=== PATIENT | female | born 1955 | race Caucasian/White ===

== ENCOUNTER 2020-04-08 13:46 | Observation (INO) | payer MEDICARE, BC ==
[2020-04-08] MEDS ORDERED: Insulin Regular, Human 100 Units/ML 3 ML Vial SUBCUT ONE (15:23)
--- NOTE | 2020-04-08 15:32 | EDM.PDOC ---
ED HPI GENERAL MEDICAL PROBLEM - General Chief Complaint: General Stated Complaint: BLOOD SUGARS ARE HIGH Time Seen by Provider: 04/08/20 15:15 Source of Information: Reports: Patient, Family, Old Records, RN History Limitations: Reports: No Limitations - History of Present Illness INITIAL COMMENTS - FREE TEXT/NARRATIVE: 64 yo female presents with a chief complaint of "high" blood sugars. Says her blood sugars normally run about 150. Is only on Lantus at bedtime. Was recently prescribed dexamethasone and sugars have since gone up. No fever or chills. Also had paracentesis recently. Onset: Today, Gradual Onset Date: 04/08/20 Duration: Hour(s):, Getting Worse Location: Reports: Generalized Quality: Reports: Other (no new pain) Severity: Severe Improves with: Reports: None Worsens with: Reports: Other (? time/ dexamethasone) Context: Reports: Other (See HPI) Associated Symptoms: Reports: No Other Symptoms Treatments RECOVERER: Reports: Other (see below) (none) - Related Data Allergies Allergy/AdvReac Type Severity Reaction Status Date / Time No Known Allergies Allergy Verified 01/29/20 09:53 Home Meds: Home Meds Amylase/Lipase/Protease [Marjan GILL 24,000 Unit] 24,000 units PO ASDIRECTED 04/08/20 [History] Insulin Glargine,Hum.Rec.Anlog [Basaglar Kwikpen U-100] 13 units SUBCNJ BEDTIME 04/08/20 [History] OLANZapine [Olanzapine] 10 mg PO DAILY 04/08/20 [History] Prochlorperazine [Compazine] 10 mg PO TID PRN 04/08/20 [History] dexAMETHasone [Dexamethasone] 4 mg PO ASDIRECTED 04/08/20 [History] metFORMIN [Glucophage] 1,000 mg PO BID 04/08/20 [History] ondansetron HCL [Ondansetron HCl] 8 mg PO ASDIRECTED PRN 04/08/20 [History] oxyCODONE 5 mg PO ASDIRECTED PRN 04/08/20 [History] 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: Endocrine/Metabolic History: Reports: Diabetes, Type II Oncologic (Cancer) History: Reports: Ovarian - Past Surgical History Female Surgical History: Reports: Hysterectomy Social & Family History - Tobacco Use Smoking Status *Q: Never Smoker - Caffeine Use Caffeine Use: Reports: Soda - Recreational Drug Use Recreational Drug Use: No ED ROS GENERAL - Review of Systems Review Of Systems: See Below Constitutional: Reports: No Symptoms HEENT: Reports: No Symptoms Respiratory: Reports: No Symptoms Cardiovascular: Reports: No Symptoms Endocrine: Reports: High Glucose GI/Abdominal: Reports: Other (chronic ascites) : Reports: No Symptoms Musculoskeletal: Reports: No Symptoms Skin: Reports: No Symptoms ED EXAM, GENERAL - Physical Exam Exam: See Below Exam Limited By: No Limitations General Appearance: Alert, WD/WN, No Apparent Distress Eye Exam: Bilateral Eye: Normal Inspection Ears: Normal External Exam, Normal Canal, Hearing Grossly Normal Ear Exam: Bilateral Ear: Auricle Normal, Canal Normal Nose: Normal Inspection, No Blood Throat/Mouth: Normal Inspection, Normal Lips, Normal Oropharynx, Normal Voice, No Airway Compromise Head: Atraumatic, Normocephalic Neck: Normal Inspection Respiratory/Chest: No Respiratory Distress, Lungs Clear, Normal Breath Sounds Cardiovascular: Regular Rate, Rhythm, No Edema GI/Abdominal: Normal Bowel Sounds, Soft, Non-Tender, No Distention, Other (ascites present) Back Exam: Normal Inspection. No: CVA Tenderness (R), CVA Tenderness (L) Extremities: Normal Inspection, Normal Range of Motion, Non-Tender, No Pedal Edema Neurological: Alert, Oriented, CN II-XII Intact, Normal Cognition, No Motor/Sensory Deficits Psychiatric: Normal Affect, Normal Mood Skin Exam: Warm, Dry, Intact, Normal Color, No Rash Course - Vital Signs Text/Narrative:: Dr. Valencia called @ 1620h Last Recorded V/S: Last Vital Signs Temp 36.2 C 04/08/20 15:19 Pulse 64 04/08/20 15:19 Resp 16 04/08/20 15:19 BP 104/67 04/08/20 15:19 Pulse Ox 96 04/08/20 15:19 - Orders/Labs/Meds Orders: Active Orders 24 hr Category Date Time Status CULTURE URINE [RM] Stat Lab 04/08/20 16:18 Ordered GLUCOSE POC LAB TO COLLECT JPM [POC] Stat Lab 04/08/20 17:05 Ordered Labs: Laboratory Tests 04/08/20 04/08/20 04/08/20 Range/Units 15:32 15:32 15:54 WBC 13.9 H (4.5-11.0) K/uL RBC 4.35 (3.30-5.50) M/uL Hgb 11.4 L (12.0-15.0) g/dL Hct 34.0 L (36.0-48.0) % MCV 78 L (80-98) fL MCH 26 L (27-31) pg MCHC 34 (32-36) % Plt Count 230 (150-400) K/uL Sodium 120 L (140-148) mmol/L Potassium 4.9 (3.6-5.2) mmol/L Chloride 88 L (100-108) mmol/L Carbon Dioxide 22 (21-32) mmol/L Anion Gap 14.9 H (5.0-14.0) mmol/L BUN 43 H (7-18) mg/dL Creatinine 1.4 H (0.6-1.0) mg/dL Est Cr Clr Drug Dosing 31.27 mL/min Estimated GFR (MDRD) 38 L (>60) Glucose 696 H* (74-106) mg/dL Calcium 9.1 (8.5-10.1) mg/dL Urine Color Yellow (YELLOW) Urine Appearance Slightly cloudy A (CLEAR) Urine pH 5.5 (5.0-8.0) Ur Specific [place] 1.020 (1.008-1.030) Urine Protein Negative (NEGATIVE) mg/dL Urine Glucose (UA) 500 H (NEGATIVE) mg/dL Urine Ketones Negative (NEGATIVE) mg/dL Urine Occult Blood Trace-intact H (NEGATIVE) Urine Nitrite Negative (NEGATIVE) Urine Bilirubin Negative (NEGATIVE) Urine Urobilinogen 0.2 (0.2-1.0) EU/dL Ur Leukocyte Esterase Negative (NEGATIVE) Urine RBC 0-5 (0-5) Urine WBC 10-20 H (0-5) Ur Epithelial Cells Few Amorphous Sediment Few Urine Bacteria Few Urine Mucus Not seen Urine Other See note Meds: Medications Discontinued Medications Generic Name Dose Route Start Last Admin Trade Name Freq PRN Reason Stop Dose Admin Insulin Human Regular 15 unit 04/08/20 15:23 04/08/20 16:07 Humulin R SUBCUT 04/08/20 15:24 15 unit ONETIME ONE Administration Potassium Chloride 30 meq 04/08/20 16:19 Potassium Chloride PO 04/08/20 16:20 ONETIME ONE Departure - Departure Time of Disposition: 16:35 Disposition: Admitted As Inpatient 65 Condition: Fair Clinical Impression: Hyperglycemia - Discharge Information *PRESCRIPTION DRUG MONITORING PROGRAM REVIEWED*: No *COPY OF PRESCRIPTION DRUG MONITORING REPORT IN PATIENT KEE: No Referrals: Ishmael Carrasco MD [Primary Care Provider] - Forms: ED Department Discharge Sepsis Event Note (ED) - Evaluation Sepsis Screening Result: No Definite Risk - Focused Exam Vital Signs: Vital Signs Temp Pulse Resp BP Pulse Ox 04/08/20 15:19 36.2 C 64 16 104/67 96 04/08/20 15:18 36.2 C 64 16 104/67 96 - My Orders Last 24 Hours: My Active Orders 04/08/20 16:18 CULTURE URINE [RM] Stat 04/08/20 17:05 GLUCOSE POC LAB TO COLLECT JPM [POC] Stat - Assessment/Plan Last 24 Hours: My Active Orders 04/08/20 16:18 CULTURE URINE [RM] Stat 04/08/20 17:05 GLUCOSE POC LAB TO COLLECT JPM [POC] Stat
[2020-04-08] MEDS ORDERED: Potassium Chloride 10 MEQ Cap.ER PO ONE (16:19)
--- NOTE | 2020-04-08 16:54 | PCM.HP.2 ---
H&P History of Present Illness - General Date of Service: 04/08/20 Admit Problem/Dx: Admission Diagnosis/Problem Admission Diagnosis/Problem Hyperglycemia Source of Information: Patient, Family, Provider, RN Notes Reviewed History Limitations: Reports: No Limitations - History of Present Illness Initial Comments - Free Text/Narative: Ms. Curtis is a 64-year-old woman who was admitted to observation status through the emergency department with hyperglycemia, secondary to underlying type 2 diabetes mellitus and use of dexamethasone. 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 She received her first dose of chemotherapy on April 06. As part of her chemotherapeutic regimen she was started on dexamethasone 4 mg daily for 3 days on April 07. Her blood sugar yesterday morning was 160 and she did not check her glucose last night. Her blood sugar at home this morning was very elevated and she presented to the emergency department for further evaluation. Here her blood sugar is 696. She denies any recent fevers chills or sweats and also denies any localized symptoms of infection. White blood cell count is elevated but this is likely secondary to the dexamethasone. She currently has no urinary symptoms, white cells were elevated in the urine but there is no other obvious evidence of infection. - Related Data Allergies/Adverse Reactions: Allergies Allergy/AdvReac Type Severity Reaction Status Date / Time No Known Allergies Allergy Verified 01/29/20 09:53 Home Medications: Home Meds Amylase/Lipase/Protease [Marjan GILL 24,000 Unit] 24,000 units PO ASDIRECTED 04/08/20 [History] Insulin Glargine,Hum.Rec.Anlog [Sebastienaglemma [place] U-100] 13 units SUBCNJ BEDTIME 04/08/20 [History] OLANZapine [Olanzapine] 10 mg PO DAILY 04/08/20 [History] Prochlorperazine [Compazine] 10 mg PO TID PRN 04/08/20 [History] dexAMETHasone [Dexamethasone] 4 mg PO ASDIRECTED 04/08/20 [History] metFORMIN [Glucophage] 1,000 mg PO BID 04/08/20 [History] ondansetron HCL [Ondansetron HCl] 8 mg PO ASDIRECTED PRN 04/08/20 [History] oxyCODONE 5 mg PO ASDIRECTED PRN 04/08/20 [History] 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 Denies: Fever, Chills HEENT: Reports: No Symptoms Pulmonary: Reports: No Symptoms Cardiovascular: Reports: No Symptoms Gastrointestinal: Reports: No Symptoms Genitourinary: Reports: No Symptoms Musculoskeletal: Reports: No Symptoms Skin: Reports: No Symptoms Psychiatric: Reports: No Symptoms Neurological: Reports: No Symptoms Hematologic/Lymphatic: Reports: No Symptoms Immunologic: Reports: No Symptoms Exam - Exam Exam: See Below - Vital Signs Vital Signs: Last Vital Signs Temp 97.2 F 04/08/20 15:19 Pulse 64 04/08/20 15:19 Resp 16 04/08/20 15:19 BP 104/67 04/08/20 15:19 Pulse Ox 96 04/08/20 15:19 Weight: 109 lb - Exam Quality Assessment: DVT Prophylaxis General: Alert, Oriented, Cooperative, Mild Distress HEENT: Conjunctiva Clear, Hearing Intact, Mucosa Moist & [place], Normal Nasal Septum, Posterior Pharynx Clear, Pupils Equal Neck: Supple, Trachea Midline, +2 Carotid Pulse wo Bruit Lungs: Clear to Auscultation, Normal Respiratory Effort Cardiovascular: Regular Rate, Regular Rhythm, Normal S1, Normal S2 GI/Abdominal Exam: Soft, Non-Tender, No Organomegaly, No Distention Back Exam: Normal Inspection, Full Range of Motion Extremities: Non-Tender, No Pedal Edema Skin: Warm, Dry, Intact Neurological: Cranial Nerves Intact, Strength Equal Bilateral, Normal Speech, Normal Tone, Sensation Intact. No: Focal Deficit Neuro Extensive - Mental Status: Alert, Oriented x3, Normal Mood/Affect, Normal Cognition, Memory Intact - Patient Data Lab Results Last 24 hrs: Laboratory Results - last 24 hr 04/08/20 04/08/20 04/08/20 Range/Units 15:32 15:32 15:54 WBC 13.9 H (4.5-11.0) K/uL RBC 4.35 (3.30-5.50) M/uL Hgb 11.4 L (12.0-15.0) g/dL Hct 34.0 L (36.0-48.0) % MCV 78 L (80-98) fL MCH 26 L (27-31) pg MCHC 34 (32-36) % Plt Count 230 (150-400) K/uL Sodium 120 L (140-148) mmol/L Potassium 4.9 (3.6-5.2) mmol/L Chloride 88 L (100-108) mmol/L Carbon Dioxide 22 (21-32) mmol/L Anion Gap 14.9 H (5.0-14.0) mmol/L BUN 43 H (7-18) mg/dL Creatinine 1.4 H (0.6-1.0) mg/dL Est Cr Clr Drug Dosing 31.27 mL/min Estimated GFR (MDRD) 38 L (>60) Glucose 696 H* (74-106) mg/dL Calcium 9.1 (8.5-10.1) mg/dL Urine Color Yellow (YELLOW) Urine Appearance Slightly cloudy A (CLEAR) Urine pH 5.5 (5.0-8.0) Ur Specific [place] 1.020 (1.008-1.030) Urine Protein Negative (NEGATIVE) mg/dL Urine Glucose (UA) 500 H (NEGATIVE) mg/dL Urine Ketones Negative (NEGATIVE) mg/dL Urine Occult Blood Trace-intact H (NEGATIVE) Urine Nitrite Negative (NEGATIVE) Urine Bilirubin Negative (NEGATIVE) Urine Urobilinogen 0.2 (0.2-1.0) EU/dL Ur Leukocyte Esterase Negative (NEGATIVE) Urine RBC 0-5 (0-5) Urine WBC 10-20 H (0-5) Ur Epithelial Cells Few Amorphous Sediment Few Urine Bacteria Few Urine Mucus Not seen Urine Other See note Result Diagrams: 04/08/20 15:32 04/08/20 15:32 Sepsis Event Note - Evaluation Sepsis Screening Result: No Definite Risk - Focused Exam Vital Signs: Vital Signs Temp Pulse Resp BP Pulse Ox 04/08/20 15:19 97.2 F 64 16 104/67 96 04/08/20 15:18 97.2 F 64 16 104/67 96 Date Exam was Performed: 04/08/20 Time Exam was Performed: 16:48 *Q Meaningful Use (ADM) - VTE Risk Assess *Q Each Risk Factor Represents 1 Point: None Total Score 1 Point Risk Factors: 0 Each Risk Factor Represents 2 Points: Age 60 - 74 Years, Malignancy (present or previous) Total Score 2 Point Risk Factors: 4 Each Risk Factor Represents 3 Points: None Total Score 3 Point Risk Factors: 0 Each Risk Factor Represents 5 Points: None Total Score 5 Point Risk Factors: 0 Venous Thromboembolism Risk Factor Score *Q: 4 Problem List Initiated/Reviewed/Updated: Yes Orders Last 24hrs: Active Orders 24 hr Category Date Time Status Patient Status Manage Transfer [TRANSFER] Routine ADT 04/08/20 16:42 Ordered CULTURE URINE [RM] Stat Lab 04/08/20 16:21 Received GLUCOSE POC LAB TO COLLECT JPM [POC] Stat Lab 04/08/20 17:05 Stop Req Resuscitation Status Routine Resus Stat 04/08/20 16:45 Ordered Assessment/Plan Comment:: ASSESSMENT AND PLAN HYPERGLYCEMIA-likely secondary to current therapy with dexamethasone as well as her underlying type 2 diabetes mellitus. No evidence of underlying infection identified at the present time. -Lantus 20 units subcu nightly -Moderate dose sliding scale Humalog -4 times daily glucometers -Hold dexamethasone METASTATIC OVARIAN CARCINOMA-status post first course of chemotherapy including dexamethasone -Hold dexamethasone MAINTENANCE ISSUES -DVT prophylaxis; Lovenox 40 mg subcu daily -GI prophylaxis; not indicated -Suarez catheter; not indicated -Nutrition; consistent carbohydrate diet -Nicotine dependence; not required CODE STATUS-FULL CODE ADMISSION STATUS-this patient will be admitted to observation status, expect no more than a one night hospital stay for evaluation and management of problems as outlined above. DISPOSITION-anticipate discharge to home after the hospital stay. PRIMARY CARE PROVIDER-Dr. Carrasco - Mortality Measure Prognosis:: Good
[2020-04-08] MEDS ORDERED: 50% Dextrose in Water 50 ML Syringe IV PRN (18:36)
[2020-04-08] MEDS ORDERED: Sodium Chloride 0.9% 10 ML Syringe FLUSH PRN (18:36)
[2020-04-08] MEDS ORDERED: Enoxaparin 40 MG/0.4 ML Syringe SUBCUT SCH (18:36)
[2020-04-08] MEDS ORDERED: Polyethylene Glycol 3350 Powder 17 GM Packet PO PRN (18:36)
[2020-04-08] MEDS ORDERED: Acetaminophen 325 MG Tab PO PRN (18:36)
[2020-04-08] MEDS ORDERED: Ondansetron 4 MG/2 ML SDV IV PRN (18:36)
[2020-04-08] MEDS ORDERED: Glucose Gel 15 GM in 37.5 GM Tube PO PRN (18:36)
[2020-04-08] MEDS ORDERED: metFORMIN 500 MG Tab PO SCH (19:15)
[2020-04-08] MEDS ORDERED: Insulin Lispro 100 Units/ML 3 ML Vial SUBCUT ONE (19:49)
[2020-04-08] MEDS: Sodium Chloride 0.9% 1,000 ML IV SCH (20:13)
[2020-04-08] MEDS: Insulin Lispro 100 Unit/ML 3 ML KwikPen SUBCUT SCH ×2 (20:14→23:13)
[2020-04-08] MEDS: oxyCODONE 5 MG Tab PO PRN (20:47)
[2020-04-08] MEDS: Insulin Glargine,Human Rec. Analog 100 Units/ML 3 ML Pen SUBCUT SCH (21:30)
[2020-04-09] MEDS: oxyCODONE 5 MG Tab PO PRN ×2 (02:10→14:24)
[2020-04-09] MEDS: Sodium Chloride 0.9% 1,000 ML IV SCH ×2 (04:03→11:58)
[2020-04-09] MEDS: Insulin Lispro 100 Unit/ML 3 ML KwikPen SUBCUT SCH ×4 (07:51→21:28)
[2020-04-09] MEDS ORDERED: Amylase/Lipase/Protease 12,000 Unit Cap.CR PO SCH (08:00)
[2020-04-09] MEDS ORDERED: Dexamethasone 4 MG Tab PO SCH (09:00)
[2020-04-09] MEDS: [UNRECOGNIZED DRUG - OTHER] PO SCH ×3 (10:42→17:38)
[2020-04-09] MEDS: METFORMIN 1000MG **PTOM PO SCH ×2 (10:42→17:38)
--- NOTE | 2020-04-09 12:07 | PCM.PN ---
- General Info Date of Service: 04/09/20 Subjective Update: Ms. Curtis is felt improved since admission with better strength and appetite. Blood glucose levels have come within desired range. Urine culture is growing gram-negative milan, final ID and sensitivities are pending. Functional Status: Reports: Tolerating Diet, Ambulating, Urinating - Review of Systems General: Reports: Weakness. Denies: Fever, Chills Pulmonary: Reports: No Symptoms Cardiovascular: Reports: No Symptoms Gastrointestinal: Reports: No Symptoms Genitourinary: Reports: No Symptoms - Patient Data Vitals - Most Recent: Last Vital Signs Temp 95 F L 04/09/20 08:45 Pulse 67 04/09/20 08:45 Resp 16 04/09/20 08:45 BP 103/65 04/09/20 08:45 Pulse Ox 95 04/09/20 08:45 Weight - Most Recent: 113 lb 0.002 oz I&O - Last 24 Hours: Intake & Output 04/08/20 04/09/20 04/09/20 22:59 06:59 14:59 Intake Total 1797 236 Balance 1797 236 Lab Results Last 24 Hours: Laboratory Results - last 24 hr 04/08/20 04/08/20 04/08/20 Range/Units 15:32 15:32 15:54 WBC 13.9 H (4.5-11.0) K/uL RBC 4.35 (3.30-5.50) M/uL Hgb 11.4 L (12.0-15.0) g/dL Hct 34.0 L (36.0-48.0) % MCV 78 L (80-98) fL MCH 26 L (27-31) pg MCHC 34 (32-36) % Plt Count 230 (150-400) K/uL Neut % (Auto) (36-66) % Lymph % (Auto) (24-44) % [place] % (Auto) (2-6) % Eos % (Auto) (2-4) % Baso % (Auto) (0-1) % Sodium 120 L (140-148) mmol/L Potassium 4.9 (3.6-5.2) mmol/L Chloride 88 L (100-108) mmol/L Carbon Dioxide 22 (21-32) mmol/L Anion Gap 14.9 H (5.0-14.0) mmol/L BUN 43 H (7-18) mg/dL Creatinine 1.4 H (0.6-1.0) mg/dL Est Cr Clr Drug Dosing 31.27 mL/min Estimated GFR (MDRD) 38 L (>60) Glucose 696 H* (74-106) mg/dL POC Glucose (74-106) MG/DL Calcium 9.1 (8.5-10.1) mg/dL Urine Color Yellow (YELLOW) Urine Appearance Slightly cloudy A (CLEAR) Urine pH 5.5 (5.0-8.0) Ur Specific [place] 1.020 (1.008-1.030) Urine Protein Negative (NEGATIVE) mg/dL Urine Glucose (UA) 500 H (NEGATIVE) mg/dL Urine Ketones Negative (NEGATIVE) mg/dL Urine Occult Blood Trace-intact H (NEGATIVE) Urine Nitrite Negative (NEGATIVE) Urine Bilirubin Negative (NEGATIVE) Urine Urobilinogen 0.2 (0.2-1.0) EU/dL Ur Leukocyte Esterase Negative (NEGATIVE) Urine RBC 0-5 (0-5) Urine WBC 10-20 H (0-5) Ur Epithelial Cells Few Amorphous Sediment Few Urine Bacteria Few Urine Mucus Not seen Urine Other See note 04/08/20 04/08/20 04/08/20 Range/Units 19:40 21:00 23:00 WBC (4.5-11.0) K/uL RBC (3.30-5.50) M/uL Hgb (12.0-15.0) g/dL Hct (36.0-48.0) % MCV (80-98) fL MCH (27-31) pg MCHC (32-36) % Plt Count (150-400) K/uL Neut % (Auto) (36-66) % Lymph % (Auto) (24-44) % [place] % (Auto) (2-6) % Eos % (Auto) (2-4) % Baso % (Auto) (0-1) % Sodium (140-148) mmol/L Potassium (3.6-5.2) mmol/L Chloride (100-108) mmol/L Carbon Dioxide (21-32) mmol/L Anion Gap (5.0-14.0) mmol/L BUN (7-18) mg/dL Creatinine (0.6-1.0) mg/dL Est Cr Clr Drug Dosing mL/min Estimated GFR (MDRD) (>60) Glucose (74-106) mg/dL POC Glucose > 500 H* 459 H 284 H (74-106) MG/DL Calcium (8.5-10.1) mg/dL Urine Color (YELLOW) Urine Appearance (CLEAR) Urine pH (5.0-8.0) Ur Specific [place] (1.008-1.030) Urine Protein (NEGATIVE) mg/dL Urine Glucose (UA) (NEGATIVE) mg/dL Urine Ketones (NEGATIVE) mg/dL Urine Occult Blood (NEGATIVE) Urine Nitrite (NEGATIVE) Urine Bilirubin (NEGATIVE) Urine Urobilinogen (0.2-1.0) EU/dL Ur Leukocyte Esterase (NEGATIVE) Urine RBC (0-5) Urine WBC (0-5) Ur Epithelial Cells Amorphous Sediment Urine Bacteria Urine Mucus Urine Other 04/09/20 04/09/20 04/09/20 Range/Units 04:40 04:40 07:30 WBC 12.7 H (4.5-11.0) K/uL RBC 4.41 (3.30-5.50) M/uL Hgb 11.3 L (12.0-15.0) g/dL Hct 34.0 L (36.0-48.0) % MCV 77 L (80-98) fL MCH 26 L (27-31) pg MCHC 33 (32-36) % Plt Count 271 (150-400) K/uL Neut % (Auto) 98 H (36-66) % Lymph % (Auto) 2 L (24-44) % [place] % (Auto) 1 L (2-6) % Eos % (Auto) 0 L (2-4) % Baso % (Auto) 0 (0-1) % Sodium 131 L (140-148) mmol/L Potassium 4.6 (3.6-5.2) mmol/L Chloride 96 L (100-108) mmol/L Carbon Dioxide 24 (21-32) mmol/L Anion Gap 15.6 H (5.0-14.0) mmol/L BUN 44 H (7-18) mg/dL Creatinine 1.0 (0.6-1.0) mg/dL Est Cr Clr Drug Dosing 45.38 mL/min Estimated GFR (MDRD) 56 L (>60) Glucose 96 (74-106) mg/dL POC Glucose 111 H (74-106) MG/DL Calcium 9.0 (8.5-10.1) mg/dL Urine Color (YELLOW) Urine Appearance (CLEAR) Urine pH (5.0-8.0) Ur Specific [place] (1.008-1.030) Urine Protein (NEGATIVE) mg/dL Urine Glucose (UA) (NEGATIVE) mg/dL Urine Ketones (NEGATIVE) mg/dL Urine Occult Blood (NEGATIVE) Urine Nitrite (NEGATIVE) Urine Bilirubin (NEGATIVE) Urine Urobilinogen (0.2-1.0) EU/dL Ur Leukocyte Esterase (NEGATIVE) Urine RBC (0-5) Urine WBC (0-5) Ur Epithelial Cells Amorphous Sediment Urine Bacteria Urine Mucus Urine Other 04/09/20 Range/Units 11:30 WBC (4.5-11.0) K/uL RBC (3.30-5.50) M/uL Hgb (12.0-15.0) g/dL Hct (36.0-48.0) % MCV (80-98) fL MCH (27-31) pg MCHC (32-36) % Plt Count (150-400) K/uL Neut % (Auto) (36-66) % Lymph % (Auto) (24-44) % [place] % (Auto) (2-6) % Eos % (Auto) (2-4) % Baso % (Auto) (0-1) % Sodium (140-148) mmol/L Potassium (3.6-5.2) mmol/L Chloride (100-108) mmol/L Carbon Dioxide (21-32) mmol/L Anion Gap (5.0-14.0) mmol/L BUN (7-18) mg/dL Creatinine (0.6-1.0) mg/dL Est Cr Clr Drug Dosing mL/min Estimated GFR (MDRD) (>60) Glucose (74-106) mg/dL POC Glucose 188 H (74-106) MG/DL Calcium (8.5-10.1) mg/dL Urine Color (YELLOW) Urine Appearance (CLEAR) Urine pH (5.0-8.0) Ur Specific [place] (1.008-1.030) Urine Protein (NEGATIVE) mg/dL Urine Glucose (UA) (NEGATIVE) mg/dL Urine Ketones (NEGATIVE) mg/dL Urine Occult Blood (NEGATIVE) Urine Nitrite (NEGATIVE) Urine Bilirubin (NEGATIVE) Urine Urobilinogen (0.2-1.0) EU/dL Ur Leukocyte Esterase (NEGATIVE) Urine RBC (0-5) Urine WBC (0-5) Ur Epithelial Cells Amorphous Sediment Urine Bacteria Urine Mucus Urine Other Fidel Results Last 24 Hours: Microbiology 04/08/20 16:21 Urine Culture - Preliminary Urine, Clean Catch Med Orders - Current: Current Medications Acetaminophen (Tylenol) 650 mg PO Q4H PRN PRN Reason: Pain (Mild 1-3)/fever Dextrose (Glutose 15) 15 gm PO ONETIME PRN PRN Reason: Hypoglycemia Dextrose/Water (Dextrose 50% In Water) 50 ml IV ONETIME PRN PRN Reason: Hypoglycemia Enoxaparin Sodium (Lovenox) 40 mg SUBCUT BEDTIME [facility] Sodium Chloride (Normal Saline) 1,000 mls @ 125 mls/hr IV ASDIRECTED [facility] Last Admin: 04/09/20 11:58 Dose: 125 mls/hr Documented by: Ceftriaxone Sodium 1 gm/ (Sodium Chloride) 50 mls @ 100 mls/hr IV Q24H [facility] Insulin Glargine (Lantus Solostar) 20 units SUBCUT BEDTIME [facility] Last Admin: 04/08/20 21:30 Dose: 20 unit Documented by: Insulin Human Lispro (Humalog) 0 unit SUBCUT QIDACANDBED [facility]; Protocol Last Admin: 04/09/20 11:47 Dose: 2 unit Documented by: Lactobacillus Rhamnosus (Culturelle) 1 cap PO BID IFTIKHAR Ondansetron HCl (Zofran) 4 mg IV Q4H PRN PRN Reason: Nausea/Vomiting Oxycodone HCl (Oxycodone) 5 mg PO Q4H PRN PRN Reason: Pain Last Admin: 04/09/20 02:10 Dose: 5 mg Documented by: Creon [id number] Ptom 0 each PO TIDMEALS [facility] Last Admin: 04/09/20 10:42 Dose: 1 each Documented by: Metformin 1000mg (Ptom) 0 each PO BIDMEALS [facility] Last Admin: 04/09/20 10:42 Dose: 1 each Documented by: Polyethylene Glycol (Miralax) 17 gm PO DAILY PRN PRN Reason: Constipation Sodium Chloride (Saline Flush) 10 ml FLUSH ASDIRECTED PRN PRN Reason: Keep Vein Open Discontinued Medications Dexamethasone (Dexamethasone) 4 mg PO DAILY [facility] Enoxaparin Sodium (Lovenox) 40 mg SUBCUT DAILY [facility] Last Admin: 04/08/20 20:47 Dose: 40 mg Documented by: Insulin Human Lispro (Humalog) 14 unit SUBCUT ONETIME ONE Stop: 04/08/20 19:50 Last Admin: 04/08/20 20:04 Dose: 14 units Documented by: Insulin Human Regular (Humulin R) 15 unit SUBCUT ONETIME ONE Stop: 04/08/20 15:24 Last Admin: 04/08/20 16:07 Dose: 15 unit Documented by: Metformin HCl (Glucophage) 1,000 mg PO BIDMEALS [facility] Last Admin: 04/08/20 19:56 Dose: Not Given Documented by: Potassium Chloride (Potassium Chloride) 30 meq PO ONETIME ONE Stop: 04/08/20 16:20 Last Admin: 04/08/20 17:36 Dose: 30 meq Documented by: - Exam Quality Assessment: DVT Prophylaxis General: Alert, Oriented, Cooperative, Mild Distress Lungs: Clear to Auscultation, Normal Respiratory Effort Cardiovascular: Regular Rate, Regular Rhythm, No Murmurs GI/Abdominal Exam: Soft, Non-Tender, No Organomegaly, No Distention Sepsis Event Note - Evaluation Sepsis Screening Result: No Definite Risk - Focused Exam Vital Signs: Vital Signs Temp Pulse Resp BP Pulse Ox 04/09/20 08:45 95 F L 67 16 103/65 95 04/09/20 06:00 94.6 F L 63 16 109/68 95 04/09/20 02:04 94 F L 60 16 115/65 97 Date Exam was Performed: 04/09/20 Time Exam was Performed: 12:04 - Problem List Review Problem List Initiated/Reviewed/Updated: Yes - My Orders Last 24 Hours: My Active Orders 04/08/20 Lunch Consistent Carbohydrate Diet [DIET] 04/08/20 16:45 Resuscitation Status Routine 04/08/20 18:36 Acetaminophen [Tylenol] 650 mg PO Q4H PRN Dextrose 50% in Water 50 ml IV ONETIME PRN Dextrose [Glutose 15] 15 gm PO ONETIME PRN Insulin Lispro [HumaLOG] See Protocol SUBCUT QIDACANDBED Ondansetron [Zofran] 4 mg IV Q4H PRN Sodium Chloride 0.9% [Normal Saline] 1,000 ml IV ASDIRECTED Sodium Chloride 0.9% [Saline Flush] 10 ml FLUSH ASDIRECTED PRN oxyCODONE 5 mg PO Q4H PRN polyethylene glycoL 3350 [MiraLAX] 17 gm PO DAILY PRN 04/08/20 18:36 Patient Status [ADT] Routine Ambulate [RC] QID Communication Order [RC] STAT Diabetes Education [RC] Click to Edit Height and Weight [RC] DAILY Intake and Output [RC] QSHIFT Notify Provider Vital Signs [RC] ASDIRECTED Notify Provider [RC] PRN Oxygen Therapy [RC] PRN Peripheral IV Care [RC] BID Up With Assistance [RC] ASDIRECTED Up to Chair [RC] QID Vital Signs [RC] Q4H Peripheral IV Insertion Adult [OM.PC] Routine 04/08/20 21:00 Insulin Glarg,Human.Rec.Analog [LantUS Solostar] 20 units SUBCUT BEDTIME 04/09/20 09:00 Patient's Own Medication [Ptom] 0 each PO BIDMEALS Patient's Own Medication [Ptom] 0 each PO TIDMEALS 04/09/20 10:25 Consult to Physical Therapy [PT Evaluation and Treatment] [CONS] Routine 04/09/20 12:04 Convert IV to Saline Lock [OM.PC] Routine 04/09/20 12:15 Lactobacillus Rhamnosus GG [Culturelle] 1 cap PO BID cefTRIAXone [Rocephin] 1 gm Sodium Chloride 0.9% [Normal Saline] 50 ml IV Q24H 04/09/20 16:30 GLUCOSE POC LAB TO COLLECT JPM [POC] QIDACANDBED 04/09/20 21:00 GLUCOSE POC LAB TO COLLECT JPM [POC] QIDACANDBED Enoxaparin [Lovenox] 40 mg SUBCUT BEDTIME 04/10/20 07:30 GLUCOSE POC LAB TO COLLECT JPM [POC] QIDACANDBED 04/10/20 11:30 GLUCOSE POC LAB TO COLLECT JPM [POC] QIDACANDBED 04/10/20 16:30 GLUCOSE POC LAB TO COLLECT JPM [POC] QIDACANDBED 04/10/20 21:00 GLUCOSE POC LAB TO COLLECT JPM [POC] QIDACANDBED 04/11/20 07:30 GLUCOSE POC LAB TO COLLECT JPM [POC] QIDACANDBED 04/11/20 11:30 GLUCOSE POC LAB TO COLLECT JPM [POC] QIDACANDBED 04/11/20 16:30 GLUCOSE POC LAB TO COLLECT JPM [POC] QIDACANDBED 04/11/20 21:00 GLUCOSE POC LAB TO COLLECT JPM [POC] QIDACANDBED 04/12/20 07:30 GLUCOSE POC LAB TO COLLECT JPM [POC] QIDACANDBED 04/12/20 11:30 GLUCOSE POC LAB TO COLLECT JPM [POC] QIDACANDBED 04/12/20 16:30 GLUCOSE POC LAB TO COLLECT JPM [POC] QIDACANDBED 04/12/20 21:00 GLUCOSE POC LAB TO COLLECT JPM [POC] QIDACANDBED 04/13/20 07:30 GLUCOSE POC LAB TO COLLECT JPM [POC] QIDACANDBED 04/13/20 11:30 GLUCOSE POC LAB TO COLLECT JPM [POC] QIDACANDBED 04/13/20 16:30 GLUCOSE POC LAB TO COLLECT JPM [POC] QIDACANDBED - Plan Plan:: ASSESSMENT AND PLAN HYPERGLYCEMIA-likely secondary to current therapy with dexamethasone as well as her underlying type 2 diabetes mellitus. She feels improved with increased energy, glucose levels under better control. -Lantus 13 units subcu nightly -Moderate dose sliding scale Humalog -4 times daily glucometers -Hold dexamethasone METASTATIC OVARIAN CARCINOMA-status post first course of chemotherapy including dexamethasone -Hold dexamethasone URINARY TRACT INFECTION -Urine culture final ID and sensitivities pending -Ceftriaxone 1 g IV every 24 hours pending culture results MAINTENANCE ISSUES -DVT prophylaxis; Lovenox 40 mg subcu daily -GI prophylaxis; not indicated -Suarez catheter; not indicated -Nutrition; consistent carbohydrate diet -Nicotine dependence; not required CODE STATUS-FULL CODE ADMISSION STATUS-this patient will be admitted to observation status, expect no more than a one night hospital stay for evaluation and management of problems as outlined above. DISPOSITION-anticipate discharge to home after the hospital stay. PRIMARY CARE PROVIDER-Dr. Carrasco
[2020-04-09] MEDS ORDERED: cefTRIAXone 1 GM in Sodium Chloride 0.9% 50 ML IV SCH (13:00)
[2020-04-09] MEDS: Lactobacillus Rhamnosus GG (Probiotic) Cap PO SCH ×2 (14:26→21:27)
[2020-04-09] MEDS ORDERED: Enoxaparin 40 MG/0.4 ML Syringe SUBCUT SCH (21:00)
[2020-04-09] MEDS: Insulin Glargine,Human Rec. Analog 100 Units/ML 3 ML Pen SUBCUT SCH (21:30)
[2020-04-10] MEDS: oxyCODONE 5 MG Tab PO PRN ×2 (02:18→10:48)
[2020-04-10] MEDS: METFORMIN 1000MG **PTOM PO SCH (08:28)
[2020-04-10] MEDS: [UNRECOGNIZED DRUG - OTHER] PO SCH (08:28)
[2020-04-10] MEDS: Lactobacillus Rhamnosus GG (Probiotic) Cap PO SCH (08:28)
[2020-04-10] MEDS: Insulin Lispro 100 Unit/ML 3 ML KwikPen SUBCUT SCH ×2 (08:30→11:45)
--- NOTE | 2020-04-10 11:17 | PCM.DCSUM1 ---
Discharge Summary - Hospital Course Brief History: Ms. Curtis is a 64-year-old woman who was admitted to observation status through the emergency department with marked hyperglycemia secondary to dexamethasone and urinary tract infection. - Discharge Data Discharge Date: 04/10/20 Discharge Disposition: Home, Self-Care 01 Condition: Good - Referral to Home Health Primary Care Physician: Ishmael Carrasco MD - Discharge Diagnosis/Problem(s) (1) UTI (urinary tract infection), uncomplicated SNOMED Code(s): 48188518 ICD Code: N39.0 - URINARY TRACT INFECTION, SITE NOT SPECIFIED Status: Acute Current Visit: Yes (2) Hyperglycemia SNOMED Code(s): 95827518 ICD Code: R73.9 - HYPERGLYCEMIA, UNSPECIFIED Status: Acute Current Visit: Yes (3) Hx of ovarian cancer Status: Chronic Current Visit: No (4) Type 2 diabetes mellitus SNOMED Code(s): 74935466 ICD Code: E11.9 - TYPE 2 DIABETES MELLITUS WITHOUT COMPLICATIONS Status: Chronic Current Visit: No - Patient Summary/Data Consults: Consultations 04/09/20 10:25 Consult to Physical Therapy [PT Evaluation and Treatment] [CONS] Routine Please Evaluate and Treat. PT Reason for Consult: weakness This query below is only for informational purposes and is not editable. Admission Diagnosis/Problem: Hyperglycemia Hospital Course: Ms. Curtis is a 64-year-old woman who was admitted to observation status through the emergency department with hyperglycemia, secondary to underlying type 2 diabetes mellitus and use of dexamethasone. She was recently diagnosed with widely metastatic ovarian carcinoma. She received her first dose of chemotherapy on April 06. As part of her chemotherapeutic regimen she was started on dexamethasone 4 mg daily for 3 days on April 07. Her blood sugar yesterday morning was 160 and she did not check her glucose last night. Her blood sugar at home this morning was very elevated and she presented to the emergency department for further evaluation. Here her blood sugar is 696. She denies any recent fevers chills or sweats and also denies any localized symptoms of infection. White blood cell count is elevated but this is likely secondary to the dexamethasone. She currently has no urinary symptoms, white cells were elevated in the urine, urine culture was obtained and did grow out E. coli. She was initially started on ceftriaxone and received IV fluids for hydration. Dexamethasone was held during her hospital stay and will be held on discharge. Blood glucose levels came within desired range by the time of discharge and she had no further marked hyperglycemia off of the dexamethasone. E. coli was found to be pansensitive and she will be discharged on additional 4 days of oral antibiotic therapy with ciprofloxacin 500 mg twice daily. She already has follow-up scheduled with oncology with planned chemotherapy on Sunday of this next week. Follow-up appointment will be scheduled with her primary care provider within 1 week and a follow-up appointment with perinatal educator will be scheduled as soon as possible. - Patient Instructions Diet: Diabetic Diet Activity: As Tolerated Other/Special Instructions: Please schedule follow-up appointment with primary care provider within 1 week. Please schedule follow-up with perinatal educator as soon as possible. - Discharge Plan *PRESCRIPTION DRUG MONITORING PROGRAM REVIEWED*: No *COPY OF PRESCRIPTION DRUG MONITORING REPORT IN PATIENT KEE: No Prescriptions/Med Rec: Ciprofloxacin HCl [Cipro] 500 mg PO BID #8 tablet Lactobacillus Rhamnosus GG [Culturelle] 1 cap PO BID #60 cap Home Medications: Home Meds Amylase/Lipase/Protease [Marjan GILL 24,000 Unit] 24,000 units PO ASDIRECTED 04/08 [History] Insulin Glargine,Hum.Rec.Anlog [Basaglar Kwikpen U-100] 13 units SUBCNJ BEDTIME 04/08/20 [History] OLANZapine [Olanzapine] 10 mg PO DAILY 04/08/20 [History] Prochlorperazine [Compazine] 10 mg PO TID PRN 04/08/20 [History] metFORMIN [Glucophage] 1,000 mg PO BID 04/08/20 [History] ondansetron HCL [Ondansetron HCl] 8 mg PO ASDIRECTED PRN 04/08/20 [History] oxyCODONE 5 mg PO ASDIRECTED PRN 04/08/20 [History] Ciprofloxacin HCl [Cipro] 500 mg PO BID #8 tablet 04/10/20 [Rx] Lactobacillus Rhamnosus GG [Culturelle] 1 cap PO BID #60 cap 04/10/20 [Rx] Referrals: Ishmael Carrasco MD [Primary Care Provider] - - Discharge Summary/Plan Comment DC Time >30 min.: No - Patient Data Vitals - Most Recent: Last Vital Signs Temp 95.5 F L 04/10/20 10:45 Pulse 82 07/25/20 10:45 Resp 16 04/10/20 10:45 BP 102/64 04/10/20 10:45 Pulse Ox 95 04/10/20 10:45 Weight - Most Recent: 114 lb 9.6 oz I&O - Last 24 hours: Intake & Output 04/09/20 04/10/20 04/10/20 22:59 06:59 14:59 Intake Total 1114 150 500 Balance 1114 150 500 Lab Results - Last 24 hrs: Laboratory Results - last 24 hr 04/09/20 04/09/20 04/09/20 Range/Units 11:30 16:30 21:00 POC Glucose 188 H 134 H 179 H (74-106) MG/DL 04/10/20 Range/Units 07:30 POC Glucose 151 H (74-106) MG/DL HERO Results - Last 24 hrs: Microbiology 04/08/20 16:21 Urine Culture - Final Urine, Clean Catch Escherichia Coli Med Orders - Current: Current Medications Acetaminophen (Tylenol) 650 mg PO Q4H PRN PRN Reason: Pain (Mild 1-3)/fever Dextrose (Glutose 15) 15 gm PO ONETIME PRN PRN Reason: Hypoglycemia Dextrose/Water (Dextrose 50% In Water) 50 ml IV ONETIME PRN PRN Reason: Hypoglycemia Enoxaparin Sodium (Lovenox) 40 mg SUBCUT BEDTIME [facility] Last Admin: 04/09/20 21:27 Dose: 40 mg Documented by: Ceftriaxone Sodium 1 gm/ (Sodium Chloride) 50 mls @ 100 mls/hr IV Q24H [facility] Last Admin: 04/09/20 13:34 Dose: 100 mls/hr Documented by: Insulin Glargine (Lantus Solostar) 20 units SUBCUT BEDTIME [facility] Last Admin: 04/09/20 21:30 Dose: 20 unit Documented by: Insulin Human Lispro (Humalog) 0 unit SUBCUT QIDACANDBED [facility]; Protocol Last Admin: 04/10/20 08:30 Dose: 2 unit Documented by: Lactobacillus Rhamnosus (Culturelle) 1 cap PO BID [facility] Last Admin: 04/10/20 08:28 Dose: 1 cap Documented by: Ondansetron HCl (Zofran) 4 mg IV Q4H PRN PRN Reason: Nausea/Vomiting Oxycodone HCl (Oxycodone) 5 mg PO Q4H PRN PRN Reason: Pain Last Admin: 04/10/20 10:48 Dose: 5 mg Documented by: Creon [id number] Ptom 0 each PO TIDMEALS [facility] Last Admin: 04/10/20 08:28 Dose: Not Given Documented by: Metformin 1000mg (Ptom) 0 each PO BIDMEALS [facility] Last Admin: 04/10/20 08:28 Dose: 1 each Documented by: Polyethylene Glycol (Miralax) 17 gm PO DAILY PRN PRN Reason: Constipation Sodium Chloride (Saline Flush) 10 ml FLUSH ASDIRECTED PRN PRN Reason: Keep Vein Open Discontinued Medications Dexamethasone (Dexamethasone) 4 mg PO DAILY [facility] Enoxaparin Sodium (Lovenox) 40 mg SUBCUT DAILY [facility] Last Admin: 04/08/20 20:47 Dose: 40 mg Documented by: Sodium Chloride (Normal Saline) 1,000 mls @ 125 mls/hr IV ASDIRECTED [facility] Last Admin: 04/09/20 11:58 Dose: 125 mls/hr Documented by: Insulin Human Lispro (Humalog) 14 unit SUBCUT ONETIME ONE Stop: 04/08/20 19:50 Last Admin: 04/08/20 20:04 Dose: 14 units Documented by: Insulin Human Regular (Humulin R) 15 unit SUBCUT ONETIME ONE Stop: 04/08/20 15:24 Last Admin: 04/08/20 16:07 Dose: 15 unit Documented by: Metformin HCl (Glucophage) 1,000 mg PO BIDMEALS [facility] Last Admin: 04/08/20 19:56 Dose: Not Given Documented by: Potassium Chloride (Potassium Chloride) 30 meq PO ONETIME ONE Stop: 04/08/20 16:20 Last Admin: 04/08/20 17:36 Dose: 30 meq Documented by: - Exam Quality Assessment: Reports: DVT Prophylaxis General: Reports: Alert, Oriented, Cooperative, No Acute Distress Lungs: Reports: Clear to Auscultation, Normal Respiratory Effort Cardiovascular: Reports: Regular Rate, Regular Rhythm, No Murmurs GI/Abdominal Exam: Soft, Non-Tender, No Organomegaly, No Distention
== END 2020-04-10 11:55 | disposition home or self-care (01) ==
LOC: JP.ED 13:46 → JP.MS 16:42
PROVIDERS: ADMIT Hospitalist; ATTEND Hospitalist
DX: E09.65 Drug or chemical induced diabetes mellitus with hyperglycemia (principal); T38.0X5A Adverse effect of glucocorticoids and synthetic analogues, initial encounter; C56.9 Malignant neoplasm of unspecified ovary; N39.0 Urinary tract infection, site not specified; B96.20 Unspecified Escherichia coli [E. coli] as the cause of diseases classified elsewhere; Z79.4 Long term (current) use of insulin; Z79.899 Other long term (current) drug therapy
CPT/HCPCS: 36415; 80048; 81001; 82962; 85025; 85027; 87086; 87088; 87186; 96361; 96365; 96372; 97116; 97162; 99284; A9270; G0378; J0696; J1650; J1815; J7030; J7050